=== PATIENT | female | born 1970 | race Caucasian/White ===

== ENCOUNTER 2017-06-22 09:13 | Outpatient (CLI) | payer OTHER ==
[~2017-06-22 09:13] MED LIST: ASPIR 8181 MG; TESSALON PERLE100 MG PO; ULTRACET PO; ZANTAC300 MG PO; ZITHROMAX200 MG PO; ZOFRAN4 MG PO
== END 2017-06-22 09:52 | disposition home or self-care (01) ==
LOC: LAB 09:13 → EDBD 09:13 → LAB 09:52
DX: D51.8 Other vitamin B12 deficiency anemias (principal); E72.12 Methylenetetrahydrofolate reductase deficiency; E72.11 Homocystinuria; I73.9 Peripheral vascular disease, unspecified; E28.2 Polycystic ovarian syndrome; N60.81 Other benign mammary dysplasias of right breast; D50.8 Other iron deficiency anemias; I10 Essential (primary) hypertension; K90.89 Other intestinal malabsorption; E55.9 Vitamin D deficiency, unspecified

== ENCOUNTER 2017-06-26 12:19 | Outpatient (CLI) | payer OTHER | END 2017-06-26 16:49 | disposition home or self-care (01) | LOC: LAB 12:19 | DX: D68.61 Antiphospholipid syndrome (principal); D51.8 Other vitamin B12 deficiency anemias; E72.12 Methylenetetrahydrofolate reductase deficiency; E72.11 Homocystinuria; I73.9 Peripheral vascular disease, unspecified; D68.69 Other thrombophilia; E28.2 Polycystic ovarian syndrome; N60.81 Other benign mammary dysplasias of right breast; D51.0 Vitamin B12 deficiency anemia due to intrinsic factor deficiency; D51.1 Vitamin B12 deficiency anemia due to selective vitamin B12 malabsorption with proteinuria ==

== ENCOUNTER 2018-03-09 07:34 | Outpatient (CLI) | payer OTHER | END 2018-03-09 07:39 | disposition home or self-care (01) | LOC: LAB 07:34 | DX: D51.8 Other vitamin B12 deficiency anemias (principal); E72.12 Methylenetetrahydrofolate reductase deficiency; E72.11 Homocystinuria; I73.89 Other specified peripheral vascular diseases; D68.69 Other thrombophilia; E28.2 Polycystic ovarian syndrome; N60.81 Other benign mammary dysplasias of right breast; D50.8 Other iron deficiency anemias; K90.89 Other intestinal malabsorption; E55.9 Vitamin D deficiency, unspecified; I10 Essential (primary) hypertension ==

== ENCOUNTER → 2018-04-25 | Outpatient (CLI) | payer OTHER | END | disposition home or self-care (01) | LOC: NUCLEAR 10:00 | DX: D68.61 Antiphospholipid syndrome (principal); D51.8 Other vitamin B12 deficiency anemias; E72.12 Methylenetetrahydrofolate reductase deficiency; E72.11 Homocystinuria; I73.9 Peripheral vascular disease, unspecified; D68.69 Other thrombophilia; E28.2 Polycystic ovarian syndrome; N60.81 Other benign mammary dysplasias of right breast; I87.2 Venous insufficiency (chronic) (peripheral) ==

== ENCOUNTER 2018-11-27 08:02 | Outpatient (CLI) | payer OTHER | END 2018-11-27 08:10 | disposition home or self-care (01) | LOC: LAB 08:02 | DX: E03.8 Other specified hypothyroidism (principal); D63.8 Anemia in other chronic diseases classified elsewhere; N30.90 Cystitis, unspecified without hematuria; Z12.11 Encounter for screening for malignant neoplasm of colon; K92.1 Melena; E78.00 Pure hypercholesterolemia, unspecified; D51.8 Other vitamin B12 deficiency anemias; E72.12 Methylenetetrahydrofolate reductase deficiency; E72.11 Homocystinuria; I73.89 Other specified peripheral vascular diseases; E28.2 Polycystic ovarian syndrome; N60.81 Other benign mammary dysplasias of right breast ==

== ENCOUNTER 2022-11-14 09:49 | Outpatient (CLI) | payer OTHER | END 2022-11-14 09:51 | disposition home or self-care (01) | LOC: NUCLEAR 09:49 | PROVIDERS: ATTEND Internal Medicine Hematology & Oncology | DX: I73.9 Peripheral vascular disease, unspecified (principal); D68.61 Antiphospholipid syndrome; D51.8 Other vitamin B12 deficiency anemias; E72.12 Methylenetetrahydrofolate reductase deficiency; E72.11 Homocystinuria; D68.69 Other thrombophilia; E28.2 Polycystic ovarian syndrome; N60.81 Other benign mammary dysplasias of right breast; N60.91 Unspecified benign mammary dysplasia of right breast ==